=== PATIENT | female | born 1990 | race Caucasian/White ===

== ENCOUNTER 2016-11-14 07:06 | Day surgery (SDC) | payer BC ==
[~2016-11-14 07:06] MED LIST: CALCIUM CITRAT200 MG PO; CRANBERRY500 M PO; EQL FISH OIL 11 EAC2 PO; FEOSOL1 TAB PO; GLUCOPHAGE500 M3 PO; HYDROCODON-ACE1 EAC7 PO; IBUPROFEN PO; IBUPROFEN200 M3 PO; IODORAL; MULTIPLE VITAM1 EAC3 PO; NEURONTIN300 M1 PO; VITAMIN B-6100 MG PO; VITAMIN C500 MG PO; VITAMIN D35000 UNIT PO; ZOLOFT50 M1 PO; [UNRECOGNIZED DRUG - OTHER]; [UNRECOGNIZED DRUG - OTHER] PO
[2016-11-14 08:05] LABS: PROTHROMBIN TIME 11.6 SECONDS (9.0-13.6)
[2016-11-15] MEDS ORDERED: PERCOCET 5-3251 EACH PO (03:40)
[2016-11-15] MEDS ORDERED: ZOFRAN4 M2 PO (03:41)
[2016-11-15] MEDS ORDERED: SURFAK240 M2 PO (03:42)
[2016-11-15] MEDS ORDERED: DULCOLAX10 MG PR (03:43)
[2016-11-15 05:55] LABS: BASO % 0.2 % (0-2); EOS % 0.4 % (0-7); HGB-HEMOGLOBIN 11.2 gm/dl (12.0-15.5); IMMATURE GRANULOCYTES ABSOLUTE 0.02 tho/cmm (0-0.03); IMMATURE GRANULOCYTES PERCENT 0.2 % (0-0.3); LYMPH % 33.1 % (20-45); LYMPH ABSOLUTE COUNT 3.4 tho/cmm (0.8-4.5); MCH (MEAN CORPUSCULAR HGB) 27.9 pg (28.0-32.0); MCHC MEAN CORPUSCULAR HGB CONC 32.9 % (32.0-36.0); MCV (MEAN CELL VOLUME) 84.8 fl (82.0-96.0); MEAN PLATELET VOLUME 8.4 cmc (9.4-12.4); MONO % 8.9 % (0-12); MONOCYTE ABSOLUTE COUNT 0.9 tho/cmm (0.0-1.2); NEUTROPHIL ABSOLUTE COUNT 5.8 tho/cmm (1.6-8.0); NEUTROPHIL-AUTOMATED 5.8 tho/cmm (1.6-8.0); NEUTROPHILS % 57.2 % (40-80); PLATELET COUNT 225 tho/cmm (150-450); RED BLOOD COUNT 4.01 mil/cmm (4.00-5.20); RED CELL DISTRIBUTION WIDTH 12.6 % (12.4-16.4); WHITE BLOOD COUNT 10.2 tho/cmm (4.0-10.0)
[2016-11-15 06:12] LABS: ANION GAP 12 mmol/L (0-20); BLOOD UREA NITROGEN 6 mg/dl (6-24); CALCIUM 7.6 mg/dl (8.5-10.5); CARBON DIOXIDE-VENOUS 25 mmol/L (22-32); CHLORIDE 106 mmol/l (96-110); CREATININE 0.83 mg/dl (0.50-1.10); GLUCOSE 79 mg/dL (70-110); POTASSIUM 3.7 mmol/L (3.7-5.1); SODIUM 139 mmol/L (135-145); eGFR VALUE FOR BLACK >90 mL/Min
== END 2016-11-15 11:30 ==
LOC: WSU 07:06 → SHSB 07:09 → ORW 09:03 → PACU 11:30 → OBGE 13:00
PROVIDERS: Obstetrics & Gynecology
PROC: 0UT94ZZ Resection of Uterus, Percutaneous Endoscopic Approach (ICD-10-PCS; principal; 2016-11-14)
PROC: 0UTC4ZZ Resection of Cervix, Percutaneous Endoscopic Approach (ICD-10-PCS; 2016-11-14)
PROC: 0UT04ZZ Resection of Right Ovary, Percutaneous Endoscopic Approach (ICD-10-PCS; 2016-11-14)
PROC: 0UT74ZZ Resection of Bilateral Fallopian Tubes, Percutaneous Endoscopic Approach (ICD-10-PCS; 2016-11-14)
PROC: 8E0W4CZ Robotic Assisted Procedure of Trunk Region, Percutaneous Endoscopic Approach (ICD-10-PCS; 2016-11-14)
DX: N71.9 Inflammatory disease of uterus, unspecified (principal); N80.0 Endometriosis of uterus; F32.9 Major depressive disorder, single episode, unspecified; E28.2 Polycystic ovarian syndrome; Z79.84 Long term (current) use of oral hypoglycemic drugs; Z79.899 Other long term (current) drug therapy; Z90.49 Acquired absence of other specified parts of digestive tract; Z98.890 Other specified postprocedural states
CPT/HCPCS: J0690; J1170; J2270; J2405; J3010; J3480; J7030